=== PATIENT | male | born 1970 | race Caucasian/White ===

== ENCOUNTER 2016-12-16 04:07 | Observation (INO) | payer BC ==
[~2016-12-16] VITALS: Ht 170.2 cm; Wt 77.1 kg
[2016-12-16 04:30] LABS: BASO % 1 % (0-3); EOS % 2 % (0-3); HEMOGLOBIN 15.9 g/dL (13.0-17.5); LYMPH # 2.6 x10^3/uL (1.0-4.8); LYMPH % 41 % (24-48); MEAN CORPUSCULAR HEMOGLOBIN 30 pg (25-35); MEAN CORPUSCULAR HGB CONC 35 g/dL (31-37); MEAN CORPUSCULAR VOLUME 87 fL (79-100); MONO % 10 % (0-9); NEUT % 47 % (31-73); PLATELET COUNT 190 x10^3/uL (140-400); RED BLOOD COUNT 5.29 x10^6/uL (4.30-5.70); RED CELL DISTRIBUTION WIDTH 12.5 % (11.5-14.5); WHITE BLOOD COUNT 6.3 x10^3/uL (4.0-11.0)
[2016-12-16 04:36] LABS: GFR 80.1; POTASSIUM 3.7 mmol/L (3.5-5.1)
[2016-12-16 04:42] LABS: ALBUMIN 3.8 g/dL (3.4-5.0); ALBUMIN/GLOBULIN RATIO 1.1 (1.0-1.7); TOTAL BILIRUBIN 0.3 mg/dL (0.2-1.0); TOTAL PROTEIN 7.2 g/dL (6.4-8.2)
[2016-12-16] MEDS ORDERED: ASPIRIN CHEWABLE 81 MG TABLET. PO ONE (04:45)
[2016-12-16] MEDS ORDERED: NITROGLYCERIN SUBLINGUAL 0.4 MG BOTTLE OF 25. SL PRN ×2 (04:45→05:30)
--- NOTE | 2016-12-16 05:43 | ED.ADGEN ---
Past Medical History Past Medical History: Hypothyroid Past Surgical History: No Surgical History Alcohol Use: Occasionally Drug Use: None Adult General Chief Complaint Chief Complaint: CHEST PAIN HPI HPI Patient is a 46 year old male presents with intermittent chest pain for the past 2 days. Chest pain is described as sharp substernal radiates to his back and left shoulder. Reports associated left arm numbness. Chest pain is nonexertional occurs at rest and last for 15-20 minutes with paresthesias of left arm lasting for upwards of one hour. Patient denies nausea, sweats or shortness of breath. No leg pain or swelling. No history of DVT or PE. No abdominal pain or tenderness. She has had sporadic episodes chest pain over the past few weeks and feels as though chest pain may be stress related. He is instructed by his PCP that should chest pain return that he should go to the emergency department. Patient smokes on occasion and has family history of coronary disease over the age of 50. He is accompanied at bedside by his spouse. Review of Systems Review of Systems Review symptoms as per history of present illness. All other review symptoms are negative Current Medications Current Medications Current Medications Medications (Trade) Dose Ordered Sig/Denia Start Time Stop Time Status Last Admin Dose Admin Aspirin (Children'S Aspirin) 324 mg 1X ONCE 12/16/16 04:45 12/16/16 04:46 DC 12/16/16 05:11 324 MG Fentanyl Citrate (Fentanyl 2ml Vial) 50 mcg PRN Q2HR PRN 12/16/16 05:45 12/17/16 05:44 Lorazepam (Ativan) 0.5 mg 1X ONCE 12/16/16 05:00 12/16/16 05:01 DC 12/16/16 05:11 0.5 MG Nitroglycerin (Nitrostat) 0.4 mg PRN Q5MIN PRN 12/16/16 05:30 12/17/16 05:29 Ondansetron HCl (Zofran) 4 mg PRN Q8HRS PRN 12/16/16 05:45 12/17/16 05:44 Allergies Allergies Allergies Coded Allergies Type Severity Reaction Last Updated Verified No Known Drug Allergies 12/16/16 No Physical Exam Physical Exam Constitutional: Well developed, anxious, moderate discomfort secondary to pain] HENT: Normocephalic, atraumatic, bilateral external ears normal, oropharynx moist, no oral exudates, nose normal. [] Eyes: PERRLA, EOMI, conjunctiva normal, no discharge. [] Neck: Normal range of motion, no tenderness, supple, no stridor. [] Cardiovascular:Heart rate regular rhythm, no murmur [] Lungs & Thorax: Bilateral breath sounds clear to auscultation [] Abdomen: Bowel sounds normal, soft, no tenderness, no masses, no pulsatile masses. [] Skin: Warm, dry, no erythema, no rash. [] Back: No tenderness, no CVA tenderness. [] Extremities: No tenderness, no cyanosis, no clubbing, ROM intact, no edema. [] Neurologic: Alert and oriented X 3, normal motor function, normal sensory function, no focal deficits noted. [] Psychologic: Affect normal, judgement normal, mood normal. [] Current Patient Data Vital Signs Vital Signs Date Time Temp Pulse Resp B/P (MAP) Pulse Ox O2 Delivery O2 Flow Rate FiO2 12/16/16 05:25 74 15 113/76 (88) 95 Room Air 12/16/16 04:19 97.7 97.7 Lab Values Laboratory Tests Test 12/16/16 04:15 White Blood Count 6.3 x10^3/uL (4.0-11.0) Red Blood Count 5.29 x10^6/uL (4.30-5.70) Hemoglobin 15.9 g/dL (13.0-17.5) Hematocrit 46.0 % (39.0-53.0) Mean Corpuscular Volume 87 fL (79-100) Mean Corpuscular Hemoglobin 30 pg (25-35) Mean Corpuscular Hemoglobin Concent 35 g/dL (31-37) Red Cell Distribution Width 12.5 % (11.5-14.5) Platelet Count 190 x10^3/uL (140-400) Neutrophils (%) (Auto) 47 % (31-73) Lymphocytes (%) (Auto) 41 % (24-48) Monocytes (%) (Auto) 10 % (0-9) H Eosinophils (%) (Auto) 2 % (0-3) Basophils (%) (Auto) 1 % (0-3) Neutrophils # (Auto) 3.0 x10^3uL (1.8-7.7) Lymphocytes # (Auto) 2.6 x10^3/uL (1.0-4.8) Monocytes # (Auto) 0.6 x10^3/uL (0.0-1.1) Eosinophils # (Auto) 0.1 x10^3/uL (0.0-0.7) Basophils # (Auto) 0.0 x10^3/uL (0.0-0.2) D-Dimer (Shanell) < 0.27 ug/mlFEU Sodium Level 142 mmol/L (136-145) Potassium Level 3.7 mmol/L (3.5-5.1) Chloride Level 105 mmol/L (98-107) Carbon Dioxide Level 28 mmol/L (21-32) Anion Gap 9 (6-14) Blood Urea Nitrogen 19 mg/dL (8-26) Creatinine 1.0 mg/dL (0.7-1.3) Estimated GFR (Cockcroft-Gault) 80.1 BUN/Creatinine Ratio 19 (6-20) Glucose Level 112 mg/dL (70-99) H Calcium Level 9.0 mg/dL (8.5-10.1) Total Bilirubin 0.3 mg/dL (0.2-1.0) Aspartate Amino Transferase (AST) 24 U/L (15-37) Alanine Aminotransferase (ALT) 53 U/L (16-63) Alkaline Phosphatase 108 U/L (46-116) Troponin I Quantitative < 0.017 ng/mL (0.000-0.055) Total Protein 7.2 g/dL (6.4-8.2) Albumin 3.8 g/dL (3.4-5.0) Albumin/Globulin Ratio 1.1 (1.0-1.7) Laboratory Tests 12/16/16 04:15 Laboratory Tests 12/16/16 04:15 EKG EKG [ekg: Normal sinus rhythm, no acute ST-T wave changes QTC 402] Radiology/Procedures Radiology/Procedures [Chest x-ray: No acute cardiopulmonary disease on the preliminary ED read.] Course & Med Decision Making Course & Med Decision Making Pertinent Labs and Imaging studies reviewed. (See chart for details) [Atypical chest pain with limited relief with nitroglycerin. Aspirin aspirin and fentanyl given. EKG, troponins negative despite several hours of intermittent chest pain. Will admit for cardiac evaluation. Dr. souza accepts care of patient had of 5:30. Courtesy bridging orders provided.] Katia Disclaimer Katia Disclaimer This electronic medical record was generated, in whole or in part, using a voice recognition dictation system. ADWOA JACK DO Dec 16, 2016 05:43
[2016-12-16] MEDS ORDERED: fentaNYL PF VIAL 100 MCG/2 ML VIAL IV PRN (05:45)
[2016-12-16] MEDS ORDERED: ONDANSETRON PF 4 MG/2 ML VIAL. IV PRN (05:45)
[2016-12-16] MEDS ORDERED: fentaNYL PF VIAL 100 MCG/2 ML VIAL IV ONE (05:45)
--- NOTE | 2016-12-16 06:31 | EKG ---
[facility] [address] [place] [address] Test Date: 2016-12-16 Test Time: 04:12:38 Pat Name: SONJA CERVANTES Department: Room: [facility] Gender: M [employer] Manager: KENNY : 1970 Requested By: ADWOA JACK Order Number: [id number] Reading MD: Jeffry Padilla Measurements Intervals [place] Rate: 69 P: 0 OR: 172 QRS: 41 QRSD: 76 T: 22 QT: 374 QTc: 402 Interpretive Statements SINUS RHYTHM Electronically Signed On 12-18-2016 15:02:59 CDT by Jeffry Padilla
[2016-12-16 07:45] VITALS: BP 108/73
--- NOTE | 2016-12-16 07:55 | RAD ---
AP chest radiograph 12/08/2016 Indication: Chest pain. Comparison: None. Findings: Cardiac images. Silhouettes are within normal limits. No pleural effusion, pneumothorax or focal consolidation. Impression: No acute cardiopulmonary abnormality.
[2016-12-16] MEDS ORDERED: LEVO200T5 PO (10:53)
[2016-12-16 10:55] VITALS: BP 106/67
[2016-12-16] MEDS ORDERED: ACETAMINOPHEN 325 MG TABLET. PO PRN (11:15)
--- NOTE | 2016-12-16 11:41 | PDOC2 ---
ROYAL ROCHA SPEED WINDER 12/16/16 1141: CARDIAC CONSULT DATE OF CONSULT Date of Consult DATE: 12/16/16 TIME: 11:37 REASON FOR CONSULT Reason for Consult: Chest pain REFERRING PHYSICIAN Referring Physician: Yifan SOURCE Source: Chart review, Patient HISTORY OF PRESENT ILLNESS HISTORY OF PRESENT ILLNESS This is a pleasant 46 yo male admitted for complains of chest pain. Reports that in the last 1 month he has been having intermittent midchest heaviness but this week this has become more frequent. 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 Reports for intermittent nausea and actually had nausea last night and vomited as well. His chest discomfort radiates to his left arm and between his shoulder blades. Sometimes he does have palpitations but no dizziness. Has been feeling fatigue but no significant MATT. He thinks he just feels anxious. Denies any falls, injury, heartburn, recent long distance travel. PAST MEDICAL HISTORY Cardiovascular: Other (childhood murmur) Pulmonary: No pertinent hx CENTRAL NERVOUS SYSTEM: Other (No pertinent history) GI: No pertinent hx Heme/Onc: No pertinent hx Hepatobiliary: No pertinent hx Psych: No pertinent hx Musculoskeletal: Osteoarthritis Infectious disease: No pertinent hx ENT: No pertinent hx Renal/: No pertinent hx Endocrine: Hypothyroidism Dermatology: No pertinent hx PAST SURGICAL HISTORY Past Surgical History: No pertinent history FAMILY HISTORY Family History: Coronary Artery Disease (father [place] at 50) SOCIAL HISTORY Smoke: <1 pack per day (>20 yrs and chews as well) ALCOHOL: occassional Drugs: None Lives: with Family CURRENT MEDICATIONS CURRENT MEDICATIONS Current Medications Medications (Trade) Dose Ordered Sig/Denia Route PRN Reason Start Time Stop Time Status Last Admin Dose Admin Aspirin (Children'S Aspirin) 324 mg 1X ONCE PO 12/16/16 04:45 12/16/16 04:46 DC 12/16/16 05:11 Nitroglycerin (Nitrostat) 0.4 mg PRN Q5MIN PRN SL CHEST PAIN 12/16/16 04:45 12/16/16 05:33 DC 12/16/16 05:13 Lorazepam (Ativan) 0.5 mg 1X ONCE IV 12/16/16 05:00 12/16/16 05:01 DC 12/16/16 05:11 Fentanyl Citrate (Fentanyl 2ml Vial) 75 mcg 1X ONCE IV 12/16/16 05:45 12/16/16 05:46 DC 12/16/16 05:47 Acetaminophen (Tylenol) 650 mg PRN Q6HRS PRN PO MODERATE PAIN 12/16/16 11:15 12/16/16 11:32 ALLERGIES ALLERGIES: Coded Allergies: No Known Drug Allergies (Unverified , 12/16/16) ROS Review of System 14 point ROS evaluated with pertinent positives noted per HPI PHYSICAL EXAM General: Alert, Oriented X3, No acute distress HEENT: Atraumatic, Mucous membr. moist/pink Lungs: Clear to auscultation, Normal air movement Heart: Regular rate (SR), Normal S1, Normal S2 Abdomen: Soft, No tenderness Extremities: No cyanosis, No edema Skin: No breakdown, No significant lesion Neuro: Normal speech, Sensation intact Psych/Mental Status: Mental status NL, Mood NL MUSCULOSKELETAL: Osteoarthritic changes both hands VITALS VITALS Vital Signs Date Time Temp Pulse Resp B/P (MAP) Pulse Ox O2 Delivery O2 Flow Rate FiO2 12/16/16 11:19 Room Air 12/16/16 10:55 97.2 74 18 106/67 (80) 97 97.2 LABS Lab: Laboratory Tests Test 12/16/16 04:15 White Blood Count 6.3 x10^3/uL (4.0-11.0) Red Blood Count 5.29 x10^6/uL (4.30-5.70) Hemoglobin 15.9 g/dL (13.0-17.5) Hematocrit 46.0 % (39.0-53.0) Mean Corpuscular Volume 87 fL (79-100) Mean Corpuscular Hemoglobin 30 pg (25-35) Mean Corpuscular Hemoglobin Concent 35 g/dL (31-37) Red Cell Distribution Width 12.5 % (11.5-14.5) Platelet Count 190 x10^3/uL (140-400) Neutrophils (%) (Auto) 47 % (31-73) Lymphocytes (%) (Auto) 41 % (24-48) Monocytes (%) (Auto) 10 % (0-9) Eosinophils (%) (Auto) 2 % (0-3) Basophils (%) (Auto) 1 % (0-3) Neutrophils # (Auto) 3.0 x10^3uL (1.8-7.7) Lymphocytes # (Auto) 2.6 x10^3/uL (1.0-4.8) Monocytes # (Auto) 0.6 x10^3/uL (0.0-1.1) Eosinophils # (Auto) 0.1 x10^3/uL (0.0-0.7) Basophils # (Auto) 0.0 x10^3/uL (0.0-0.2) D-Dimer (Shanell) < 0.27 ug/mlFEU Sodium Level 142 mmol/L (136-145) Potassium Level 3.7 mmol/L (3.5-5.1) Chloride Level 105 mmol/L (98-107) Carbon Dioxide Level 28 mmol/L (21-32) Anion Gap 9 (6-14) Blood Urea Nitrogen 19 mg/dL (8-26) Creatinine 1.0 mg/dL (0.7-1.3) Estimated GFR (Cockcroft-Gault) 80.1 BUN/Creatinine Ratio 19 (6-20) Glucose Level 112 mg/dL (70-99) Calcium Level 9.0 mg/dL (8.5-10.1) Total Bilirubin 0.3 mg/dL (0.2-1.0) Aspartate Amino Transf (AST/SGOT) 24 U/L (15-37) Alanine Aminotransferase (ALT/SGPT) 53 U/L (16-63) Alkaline Phosphatase 108 U/L (46-116) Troponin I Quantitative < 0.017 ng/mL (0.000-0.055) Total Protein 7.2 g/dL (6.4-8.2) Albumin 3.8 g/dL (3.4-5.0) Albumin/Globulin Ratio 1.1 (1.0-1.7) ASSESSMENT/PLAN ASSESSMENT/PLAN 1. Chest Pain: with typical features and risk factors. 2. Tobaccoism 3. Hypothyroidism Recommendations 1. MPI today 2. lipid panel, TSH 3. Smoking cessation Problems: DANNIELLE ALONSO MD 12/18/16 1920: CARDIAC CONSULT ALLERGIES ALLERGIES: Coded Allergies: No Known Drug Allergies (Unverified , 12/16/16) ASSESSMENT/PLAN ASSESSMENT/PLAN Late entry for 12/16/2016 Agree with above nurse practitioner note. Patient seen and examined. 46-year-old male with multiple risk factors presenting with chest pain. Normal cardiac exam. Given his risk factors he underwent a myocardial perfusion study which was normal. Okay to discharge from cardiac standpoint. Medical management. Problems: ROYAL ROCHA APRN Dec 16, 2016 11:41 DANNIELLE ALONSO MD Dec 18, 2016 19:20
[2016-12-16 12:35] LABS: CHOLESTEROL/HDL RATIO 6.1
[2016-12-16] MEDS ORDERED: REGADENOSON 0.4 MG/5 ML DISP.SYRIN. IV ONE (12:45)
--- NOTE | 2016-12-16 14:58 | RAD ---
APPROVED REPORT Test Type: Pharmacological Stress Nurse/Tech: Gauri Lloyd R.N. Test Indications: chest pain Cardiac History: Family history, smoker Medications: See Electronic Medical Record Medical History: See Electronic Medical Record Resting ECG: NSR Resting Heart Rate: 67 bpm Resting Blood Pressure: 121/76mmHg Pretest Chest Pain: No chest pain Nurse/Tech Notes S1S2. lungs sound clear Consent: The procedure was explained to the patient in lay terms. Informed consent was witnessed. Taran eout was entered into [facility]. History and Stress Test performed by Gauri Lloyd R.N. Pharm. Details Pharmacologic stress testing was performed using 0.4mg per 5ml of regadenoson given intravenously ove r 7-10 seconds. Stress Symptoms Dyspnea POST EXERCISE Reason for Termination: Infusion complete Max HR: 101 bpm Max Blood Pressure: 137/59mmHg Blood Pressure response to exercise: Normal blood pressure response during stress. Chest Pain: No. Arrhythmia: No. ST Change: No. INTERPRETATION Stress EKG Conclusion: Baseline EKG showed sinus rhythm. No ischemic changes at peak stress. No arr hythmias. Imaging Protocol IMAGE PROTOCOL: Rest Tc-99m/stress Tc-99m 1 day Rest: Stress: Viability: Radiopharm.Tc99m GchjdyhfrKn44m Sestamibi Tspd29iPz 34mCi Duration 15min. 10min. Img Date 12/16/2016 12/16/2016 Inj-Img Ssrg50azm. 60min. Rest Admin Site:IV - Left AntecubitalAdministrator:Uriel Isidro RT (R)(N) Stress Admin Site: IV - Left AntecubitalAdministrator: Ruthann Moreau RT (R)(N) STRESS DATA End Diast. Vol.76.0mlAv. Heart Rate78.0bpm End Syst. Vol.11.0mlCO Index BSA0.0L/min Myocardial Kyzp240.0gEject. Xavvnvoa27.0% Stress Rates Pk. Fill Rate3.28EDV/secLVtime Pk. Fill 180.53msec Pk. Empty Rate4.95ESV/secLVtime Pk. Olkoi806.43msec 05/24 Pk. Fill1.62EDV/sec Stress Scores Regional WT0.00Summed WT0.00 Regional WM0.00Summed WM0.00 Study quality was good. Left Ventricular size was Normal at Rest and Stress. Lung uptake was . Left Ventricular ejection fraction is 86%. The rest and stress images show normal perfusion, normal contraction and thickening. LV Perf. Quant 17 Seg. SSS0.00 17 Seg. SRS0.00 17 Seg. SDS0.00 Stress Defect Extent (% LAD)0.00Rest Defect Extent (% LAD)0.00Rev. Defect Extent (% LAD)0.00 Stress Defect Extent (% LCX) 0.00Rest Defect Extent (% LCX)0.00Rev. Defect Extent (% LCX)0.00 Stress Defect Extent (% RCA)0.00Rest Defect Extent (% RCA)0.00Rev. Defect Extent (% RCA)0.00 Stress Defect Extent (% JOANN)0.00Rest Defect Extent (% JOANN)0.00Rev. Defect Extent (% JOANN)0.00 Conclusion 1. Regadenoson cardioisotope stress test did not show any evidence of ischemia or infarct. 2. Normal left ventricular systolic function with ejection fraction calculated at 86%. 3. Low risk for cardiac events.
[2016-12-16 15:00] VITALS: BP 115/73
[2016-12-16] MEDS ORDERED: PANT20TA2 PO (15:56)
--- NOTE | 2016-12-16 16:33 | SSS ---
ADMIT DATE: 12/16/2016 CHIEF COMPLAINT: Chest pain. HISTORY OF PRESENT ILLNESS: The patient is a 46-year-old gentleman who presented to the Emergency Room with intermittent chest pain. He relates that today's episode was actually sharp, substernal, in the middle of his chest, radiating through to the back as well as down his left shoulder and arm. This was associated with some arm numbness. He denies any shortness of breath, but had 2 episodes of vomiting with this. Pain actually got better with nitroglycerin in the Emergency Room. He relates he had episodes of chest pressure over the past couple of months, can last for quite a while in the middle of his chest in quality different than his current pain. He was therefore admitted for further cardiac workup. PAST MEDICAL HISTORY: Hypothyroidism. No other medical or surgical issues. FAMILY HISTORY: Significant for heart disease in father with first MS at 50 and his maternal grandmother in her 50s. 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 Smokes occasionally, drinks socially. Denies any drugs. ALLERGIES: No known drug allergies. MEDICATIONS: Synthroid. REVIEW OF SYSTEMS: Essentially positive as per HPI. He denies any other symptoms in rest of organ system review. PHYSICAL EXAMINATION: VITAL SIGNS: From today show a blood pressure of 115/73, heart rate at 87, respiratory rate at 18. He is afebrile. GENERAL: This is a well-nourished 46-year-old gentleman, alert and oriented, in no acute distress. LUNGS: Clear. HEART: Has regular rate and rhythm. ABDOMEN: Has positive bowel sounds, soft, nontender. EXTREMITIES: Show no edema. SKIN: Warm, soft and dry. NEUROLOGIC: He appears grossly intact. LABORATORY DATA: CBC with a WBC of 6.3, hemoglobin 15.9, platelets of 190. Chemistries with a BUN and creatinine of 19 and 1.0, normal electrolytes, normal LFTs. Triglycerides at 331. Cholesterol at 176. Troponins negative x 2. IMAGING: Chest x-ray obtained in the Emergency Room shows no acute cardiopulmonary abnormality. HOSPITAL COURSE: The patient was admitted to the hospital on telemetry unit. Acute coronary syndrome was ruled out with serial enzymes and EKG. He was seen by Cardiology, who proceeded with MPI, which did not show any evidence of ischemia. The patient was diagnosed with GERD, esophagitis and suspected anxiety/panic disorders. For the esophagitis he was prescribed Protonix b.i.d. for one month. He was given a work excuse for a couple of more days before returning to home. He will discuss initiation of triglyceride medication as well as anxiety meds with his primary care physician. DISCHARGE DATE: 12/16/2016. DISCHARGE DIAGNOSES: Gastroesophageal reflux disease, esophagitis, atypical chest pain and anxiety. DISCHARGE DISPOSITION: To home. DISCHARGE CONDITION: Improved. DISCHARGE MEDICATIONS: Please refer to MAR. DISCHARGE INSTRUCTIONS: The patient will follow up with his PCP CECILIO. MATTHEW HERNANDEZ MD DR: UR/nts JOB#: [id number] / [id number] CONNOR Martino MTDD
[2016-12-17] MEDS ORDERED: LEVOTHYROXINE 150 MCG TABLET PO SCH (07:00)
== END 2016-12-16 16:40 | disposition home or self-care (01) ==
LOC: ER 04:07 → 6 SOUTH 04:45
PROVIDERS: ADMIT Internal Medicine; ATTEND Internal Medicine
DX: R07.89 Other chest pain (principal); E03.9 Hypothyroidism, unspecified; F17.210 Nicotine dependence, cigarettes, uncomplicated; F41.9 Anxiety disorder, unspecified; K21.0 Gastro-esophageal reflux disease with esophagitis
CPT/HCPCS: 36415; 71010; 78452; 80053; 80061; 84443; 84484; 85027; 85379; 93005; 93017; 96374; 96375; 99285; A9500; G0378; J2060; J2785; J3010; 96376; G0379